=== PATIENT | female | born 1945 | race Caucasian/White ===

== ENCOUNTER 2023-10-29 11:06 | Day surgery (SDC) | payer MEDICARE, OTHER ==
[~2023-10-29] VITALS: Ht 165.1 cm; Wt 110.2 kg
[2023-10-29] VITALS (8 sets, daily range): BP systolic 114–129; BP diastolic 42–94; PULSE 64–75; RESP 12–14; TEMP 98.2; O2SAT 93–97
[2023-10-29] MEDS ORDERED: diphenhydrAMINE 25mg capsule PO PRN (11:35)
[2023-10-29] MEDS ORDERED: LORazepam 0.5 MG tablet PO PRN (11:35)
[2023-10-29] MEDS ORDERED: normal saline 1,000 ML IV SCH (11:35)
[2023-10-29] MEDS ORDERED: HYDR25TA5 PO (11:36)
[2023-10-29] MEDS ORDERED: SIMV-42 PO (11:36)
[2023-10-29] MEDS ORDERED: ERGO50CA PO (11:36)
[2023-10-29] MEDS ORDERED: LISI5TAB22 PO (11:36)
[2023-10-29 12:01] LABS: ALBUMIN 3.4 G/DL (3.4-5.0); ANION GAP 9 (8-16); BLOOD UREA NITROGEN 10 MG/DL (7-18); BUN/CREATININE RATIO 15.9 (10.0-20.0); CALCIUM 9.2 MG/DL (8.5-10.1); CHLORIDE 98 MMOL/L (99-107); CREATININE 0.63 MG/DL (0.40-0.90); GLUCOSE 119 MG/DL (70-104); SODIUM 135 MMOL/L (135-145); TOTAL CARBON DIOXIDE 28.2 MMOL/L (24-32); eCRCL 66 ML/MIN; eGFR > 90 ML/MIN
[2023-10-29 12:03] LABS: BASOPHILS # (AUTO) 0.1 X10'3 (0-0.2); BASOPHILS % (AUTO) 0.8 % (0-1); EOSINOPHILS # (AUTO) 0.2 X10'3 (0-0.9); EOSINOPHILS % (AUTO) 3.2 % (0-6); HEMATOCRIT 47.6 % (35.0-45.0); HEMOGLOBIN 16.1 g/dl (12.0-16.0); LYMPHOCYTES # (AUTO) 2.4 X10'3 (1.1-4.8); MEAN CORPUSCULAR HEMOGLOBIN 30.4 PG (27.0-31.0); MEAN CORPUSCULAR HGB CONC 33.9 g/dL (33.0-36.5); MEAN CORPUSCULAR VOLUME 89.6 FL (78-98); MEAN PLATELET VOLUME 8.2 FL (7.4-10.4); MONOCYTES # (AUTO) 0.5 X10'3 (0-0.9); MONOCYTES % (AUTO) 6.6 % (2-12); NEUTROPHILS # (AUTO) 4.4 X10'3 (1.8-7.7); NEUTROPHILS % (AUTO) 58.4 % (42-75); PLATELET COUNT 202 X10'3 (140-440); RED BLOOD COUNT 5.32 X10'6 (4.20-5.60); RED CELL DISTRIBUTION WIDTH 14.2 % (11.5-14.5); WHITE BLOOD COUNT 7.6 X10'3 (4.5-11.0)
[2023-10-29] MEDS ORDERED: verapamil 2.5 mg/ml inj IV ONE (12:15)
[2023-10-29] MEDS ORDERED: midazolam 1 mg/ML 2ml injection ONE (12:15)
[2023-10-29] MEDS ORDERED: fentaNYL/PF 50MCG/1 ML 2ML syringe ONE (12:15)
[2023-10-29] MEDS ORDERED: heparin 1,000unit/ml 10ml vial 10 ML ONE (12:15)
[2023-10-29] MEDS ORDERED: LIDOcaine 1% (10mg/ml) 2ml vial ONE (12:15)
[2023-10-29] MEDS ORDERED: iohexol 350MG/ML 100ml bottle IV ONE (12:16)
[2023-10-29] MEDS ORDERED: nitroGLYCERIN 500mcg/5mL D5W 5 ML IV ONE (12:18)
[2023-10-29 13:11] LABS: PROTHROMBIN TIME 10.5 SECONDS (9.0-12.0)
[2023-10-29 13:39] LABS: ISTAT HGB ART 13.6 g/dl (12.0-16.0); ISTAT Hct ART 40 %PCV (35-45); ISTAT O2 SATURATION ARTERIAL 90 % (95-98); ISTAT SOURCE ART
[2023-10-29] MEDS ORDERED: HYDROcodone/acetaminophen 5mg/325mg tablet PO PRN (14:20)
[2023-10-29] MEDS ORDERED: HYDROcodone/acetaminophen 10/325mg tab PO PRN (14:20)
[2023-11-02 08:28] LABS: ISTAT HGB MIX 13.6 g/dl (12.0-16.0); ISTAT Hct MIX 40 %PCV (35-45); ISTAT O2 SATURATION MIX VENOUS 66 % (60-80); ISTAT SOURCE VEN
== END 2023-10-29 16:00 | disposition home or self-care (01) ==
LOC: SSTAY O 11:06
PROVIDERS: ATTEND Student in an Organized Health Care Education/Training Program
DX: I35.0 Nonrheumatic aortic (valve) stenosis (principal); I10 Essential (primary) hypertension; E78.5 Hyperlipidemia, unspecified; E66.9 Obesity, unspecified; Z68.41 Body mass index [BMI] 40.0-44.9, adult; Z88.0 Allergy status to penicillin; Z79.899 Other long term (current) drug therapy
CPT/HCPCS: 36415; 80048; 82803; 85014; 85025; 85610; 93005; 93456; 99152; A6258; J1644; J2250; J3010; J3490; J7030; Q0163; Q9967; A6402; C1894

== ENCOUNTER 2024-01-10 10:47 | Outpatient (CLI) | payer MEDICARE, OTHER ==
[~2024-01-10 10:47] MED LIST: ERGO50CA PO; HYDR25TA5 PO; LISI5TAB22 PO; SIMV-42 PO
[2024-01-10 11:44] LABS: APTT 31 SECONDS (22-32); PROTHROMBIN TIME 10.7 SECONDS (9.0-12.0)
[2024-01-10 11:45] LABS: BASOPHILS % (AUTO) 0.6 % (0-1); EOSINOPHILS # (AUTO) 0.3 X10'3 (0-0.9); EOSINOPHILS % (AUTO) 3.5 % (0-6); HEMOGLOBIN 15.6 g/dl (12.0-16.0); LYMPHOCYTES # (AUTO) 2.3 X10'3 (1.1-4.8); LYMPHOCYTES % (AUTO) 30.5 % (21-51); MEAN CORPUSCULAR HEMOGLOBIN 30.5 PG (27.0-31.0); MEAN CORPUSCULAR VOLUME 89.8 FL (78-98); MEAN PLATELET VOLUME 8.7 FL (7.4-10.4); MONOCYTES # (AUTO) 0.5 X10'3 (0-0.9); MONOCYTES % (AUTO) 7.2 % (2-12); NEUTROPHILS # (AUTO) 4.4 X10'3 (1.8-7.7); NEUTROPHILS % (AUTO) 58.2 % (42-75); PLATELET COUNT 186 X10'3 (140-440); RED BLOOD COUNT 5.12 X10'6 (4.20-5.60); RED CELL DISTRIBUTION WIDTH 14.3 % (11.5-14.5); WHITE BLOOD COUNT 7.5 X10'3 (4.5-11.0)
[2024-01-10 11:53] LABS: ALANINE AMINOTRANSFERASE 123 U/L (12-78); ALBUMIN 3.4 G/DL (3.4-5.0); ALBUMIN/GLOBULIN RATIO 0.9 (1.1-1.5); ALKALINE PHOSPHATASE 83 IU/L (46-116); ANION GAP 6 (8-16); ASPARTATE AMINO TRANSFERASE 87 U/L (10-37); BILIRUBIN,TOTAL 0.6 MG/DL (0.1-1.0); BLOOD UREA NITROGEN 16 MG/DL (7-18); BUN/CREATININE RATIO 18.2 (10.0-20.0); CALCIUM 9.3 MG/DL (8.5-10.1); CHLORIDE 103 MMOL/L (99-107); CREATININE 0.88 MG/DL (0.40-0.90); GLUCOSE 130 MG/DL (70-104); POTASSIUM 4.1 MMOL/L (3.5-5.1); PRO BRAIN NATRIURETIC PEPTIDE 162 PG/ML (0-450); SODIUM 138 MMOL/L (135-145); TOTAL PROTEIN 7.2 G/DL (6.4-8.2); eGFR 62 ML/MIN
== END 2024-01-10 23:59 | disposition home or self-care (01) ==
LOC: RAD 10:47
PROVIDERS: ATTEND Internal Medicine Cardiovascular Disease
DX: K76.0 Fatty (change of) liver, not elsewhere classified (principal); I35.0 Nonrheumatic aortic (valve) stenosis; R06.02 Shortness of breath; I65.29 Occlusion and stenosis of unspecified carotid artery; M47.816 Spondylosis without myelopathy or radiculopathy, lumbar region; Z90.6 Acquired absence of other parts of urinary tract
CPT/HCPCS: 36415; 71046; 71275; 74174; 75572; 80053; 83880; 85025; 85610; 85730; J3490; Q9967

== ENCOUNTER 2024-01-13 15:36 | Outpatient (CLI) | payer MEDICARE, OTHER ==
[~2024-01-13] VITALS: Ht 160 cm; Wt 112.6 kg
[~2024-01-13 15:36] MED LIST changes: +IODIXANOL 320 MG/ML INFUS..BTL 100ML IV ONE
[2024-01-13 16:20] VITALS: BP 148/67; PULSE 75; RESP 18; TEMP 97.5; O2SAT 97
== END 2024-01-13 23:59 | disposition home or self-care (01) ==
LOC: TAVR 15:36
PROVIDERS: ATTEND Internal Medicine Cardiovascular Disease
DX: I35.0 Nonrheumatic aortic (valve) stenosis (principal); R06.02 Shortness of breath; I65.29 Occlusion and stenosis of unspecified carotid artery
CPT/HCPCS: J3490; Q9967

== ENCOUNTER 2024-02-10 06:01 | Inpatient (IN) | payer MEDICARE, OTHER ==
[2024-02-03 15:50] LABS: BASOPHILS # (AUTO) 0.1 X10'3 (0-0.2); BASOPHILS % (AUTO) 0.8 % (0-1); EOSINOPHILS # (AUTO) 0.2 X10'3 (0-0.9); LYMPHOCYTES # (AUTO) 2.8 X10'3 (1.1-4.8); LYMPHOCYTES % (AUTO) 35.5 % (21-51); MEAN CORPUSCULAR HEMOGLOBIN 30.1 PG (27.0-31.0); MEAN CORPUSCULAR HGB CONC 34.1 g/dL (33.0-36.5); MEAN CORPUSCULAR VOLUME 88.4 FL (78-98); MEAN PLATELET VOLUME 8.4 FL (7.4-10.4); MONOCYTES # (AUTO) 0.7 X10'3 (0-0.9); MONOCYTES % (AUTO) 8.8 % (2-12); NEUTROPHILS % (AUTO) 51.9 % (42-75); PRE OP HEMATOCRIT 45.7 % (35.0-45.0); PRE OP HEMOGLOBIN 15.6 g/dL (12.0-16.0); PRE OP PLATELET COUNT 184 X10'3 (140-440); PRE OP WHITE BLOOD COUNT 7.8 10'3 (4.8-10.8); RED BLOOD COUNT 5.17 X10'6 (4.20-5.60); RED CELL DISTRIBUTION WIDTH 14.6 % (11.5-14.5)
[2024-02-03 15:50] LABS: BILIRUBIN,URINE NEGATIVE (Neg); CLARITY,URINE SLIGHTLY CLOUDY (Clear); COLOR,URINE YELLOW (Yellow); GLUCOSE, URINE NEGATIVE (Neg); KETONES,URINE NEGATIVE (Neg); LEUKOCYTE ESTERASE ,URINE NEGATIVE (Neg); NITRITES, URINE NEGATIVE (Neg); OCCULT BLOOD,URINE NEGATIVE (Neg); PH,URINE 5.5 (4.8-8.0); PROTEIN,URINE NEGATIVE (Neg); UROBILINOGEN,URINE 0.2 E.U/dL (0.2-1.0)
[2024-02-03 15:53] LABS: UA COLLECTION TYPE NON-SPECIFIED
[2024-02-03 15:55] LABS: SQUAMOUS EPITHELIAL CELL,UR MANY /LPF (FEW)
[2024-02-03 15:56] LABS: BACTERIA,URINE 1+ /HPF (Neg); RBC,URINE NONE SEEN /HPF (0-2); WBC,URINE 0-4 /HPF (0-4)
[2024-02-03 15:58] LABS: PRE OP PROTIME 10.8 SECONDS (9.0-12.0)
[2024-02-03 16:11] LABS: ALBUMIN 3.3 G/DL (3.4-5.0); ALBUMIN/GLOBULIN RATIO 0.8 (1.1-1.5); ALKALINE PHOSPHATASE 92 IU/L (46-116); BLOOD UREA NITROGEN 14 MG/DL (7-18); BUN/CREATININE RATIO 17.1 (10.0-20.0); CALCIUM 8.8 MG/DL (8.5-10.1); CHLORIDE 100 MMOL/L (99-107); CREATININE 0.82 MG/DL (0.40-0.90); PRE OP ANION GAP 10 (8-16); PRE OP AST 70 U/L (10-37); PRE OP BILIRUB, TOTAL 0.5 MG/DL (0.0-1.0); PRE OP GLUCOSE 108 MG/DL (70-104); PRE OP POTASSIUM 4.1 MMOL/L (3.4-5.1); PRE OP SODIUM 137 MMOL/L (135-145); TOTAL CARBON DIOXIDE 27.4 MMOL/L (24-32); TOTAL PROTEIN 7.5 G/DL (6.4-8.2); eGFR 67 ML/MIN
[2024-02-03 16:24] LABS: PRO BRAIN NATRIURETIC PEPTIDE 181 PG/ML (0-450)
[2024-02-03 16:25] LABS: PRE OP ALT 106 U/L (30-65)
[~2024-02-10] VITALS: Ht 160 cm; Wt 112.5 kg
[2024-02-10] VITALS (27 sets, daily range): BP systolic 104–158; BP diastolic 48–96; PULSE 64–86; RESP 12–21; TEMP 97.6–98.6; O2SAT 86–99
[2024-02-10] MEDS: phenylephrine inj 50 MG in normal saline 250ml IV solN IV SCH (05:30)
[2024-02-10] MEDS: nitroPRUSSIDE (NIPRIDE) (200MCG/ML) 100ML Drip IV SCH (05:30)
[2024-02-10] MEDS: vancomycin/NS 1 GM in NS 250 ML IV ONE (05:30)
[~2024-02-10 06:01] MED LIST changes: -IODIXANOL 320 MG/ML INFUS..BTL 100ML IV ONE; +ondansetron/PF 4mg/2ml inj IV PRN
[2024-02-10] MEDS: ringers solution, lacted 1,000 ML IV SCH ×2 (06:50→08:00)
[2024-02-10] MEDS: aspirin 325mg tablet PO ONE (06:52)
[2024-02-10] MEDS: famotidine 20mg tablet PO ONE (06:52)
[2024-02-10] MEDS ORDERED: morphine 4 MG/ML inj SYRINge IV PRN (08:00)
[2024-02-10] MEDS ORDERED: ondansetron/PF 4mg/2ml inj IV PRN ×2 (08:00→10:20)
[2024-02-10] MEDS ORDERED: morphine 2 MG/ML inj. syringe IV PRN (08:00)
[2024-02-10] MEDS ORDERED: proCHLORperazine 10 MG/2 ml inj IV PRN ×2 (08:00→10:20)
[2024-02-10] MEDS ORDERED: meperidine/PF 25mg/ml syringe IV PRN ×3 (08:00)
[2024-02-10] MEDS ORDERED: LIDOcaine 1% (10mg/ml) 2ml vial ONE ×2 (08:20→09:02)
[2024-02-10] MEDS ORDERED: heparin 1,000 UNITS/NS 500ml 1,500 ML ONE (08:42)
[2024-02-10] MEDS ORDERED: iohexol 350MG/ML 100ml bottle IV ONE (08:42)
[2024-02-10] MEDS ORDERED: sevoflurane 250ml liquid IH ONE (08:48)
[2024-02-10] MEDS ORDERED: propofol inj 20 ML IV ONE (08:55)
[2024-02-10] MEDS ORDERED: midazolam 1 mg/ML 2ml injection ONE (08:56)
[2024-02-10] MEDS ORDERED: fentaNYL/PF 50MCG/1 ML 2ML syringe ONE (08:56)
[2024-02-10] MEDS ORDERED: heparin 1,000unit/ml 10ml vial 10 ML ONE (09:01)
[2024-02-10] MEDS: protamine sulfate 10mg/ml inj. ONE (09:04)
[2024-02-10] MEDS ORDERED: labetalol 20mg/4ml (5mg/ml) syringe IV PRN (10:20)
[2024-02-10] MEDS ORDERED: potassium Cl 40MEQ/270ML bag 250 ML IV PRN (10:20)
[2024-02-10] MEDS ORDERED: normal saline 1000ml 1,000 ML IV SCH (10:20)
[2024-02-10] MEDS ORDERED: magnesium 2GM in 50ml NS 50 ML IV PRN (10:20)
[2024-02-10] MEDS ORDERED: diphenhydrAMINE 25mg capsule PO PRN (10:20)
[2024-02-10] MEDS ORDERED: potassium Cl 20mEq/100mL bag 100 ML IV PRN (10:20)
[2024-02-10] MEDS ORDERED: magnesium 4gm in 100ml NS 100 ML IV PRN (10:20)
[2024-02-10] MEDS ORDERED: ALPRAZolam 0.25mg tablet PO PRN (10:20)
[2024-02-10] MEDS ORDERED: potassium CL 10mEq/100ml bag 100 ML IV PRN (10:20)
[2024-02-10] MEDS ORDERED: HYDROcodone/acetaminophen 5mg/325mg tablet PO PRN (10:20)
[2024-02-10] MEDS ORDERED: pantoprazole 40mg Tablet.DR PO PRN (10:20)
[2024-02-10] MEDS ORDERED: potassium Cl 20 mEq SR tablet PO PRN (10:20)
[2024-02-10] MEDS ORDERED: potassium Cl 40MEQ/1/2NS 520ml 520 ML IV PRN (10:20)
[2024-02-10] MEDS ORDERED: hydrALAZINE 20mg/ml inj. IV PRN (10:20)
[2024-02-10] MEDS ORDERED: docusate sod 100mg capsule PO PRN (10:20)
[2024-02-10] MEDS: sod chloride 0.9% 10ml flush syringe IV SCH (20:00)
[2024-02-10] MEDS: atorvastatin 10mg tablet PO SCH (20:16)
[2024-02-10] MEDS: vancomycin/NS 1 GM ADD-VANTAGE 250 ML IV SCH (20:17)
[2024-02-10] MEDS: acetaminophen 325mg tablet PO PRN (21:25)
[2024-02-11 02:00] VITALS: BP 123/74; PULSE 80; RESP 20; TEMP 97.6; O2SAT 97
[2024-02-11 06:00] VITALS: BP 132/51; PULSE 93; RESP 16; TEMP 98.5; O2SAT 96
[2024-02-11] MEDS: HYDROchlorothiazide 25mg tablet PO SCH (07:38)
[2024-02-11] MEDS: aspirin 81mg tab.chew PO SCH (07:38)
[2024-02-11] MEDS: cholecalciferol (vitamin D3) 1,000 unit (25mcg) tablet PO SCH (07:40)
[2024-02-11] MEDS: lisinopril 5mg tablet PO SCH (07:40)
[2024-02-11 08:12] LABS: BASOPHILS % (AUTO) 0.4 % (0-1); EOSINOPHILS # (AUTO) 0.2 X10'3 (0-0.9); EOSINOPHILS % (AUTO) 3.1 % (0-6); HEMATOCRIT 40.3 % (35.0-45.0); HEMOGLOBIN 13.5 g/dl (12.0-16.0); LYMPHOCYTES # (AUTO) 1.4 X10'3 (1.1-4.8); LYMPHOCYTES % (AUTO) 23.5 % (21-51); MEAN CORPUSCULAR HEMOGLOBIN 30.1 PG (27.0-31.0); MEAN CORPUSCULAR HGB CONC 33.4 g/dL (33.0-36.5); MEAN CORPUSCULAR VOLUME 90.2 FL (78-98); MEAN PLATELET VOLUME 8.4 FL (7.4-10.4); MONOCYTES # (AUTO) 0.6 X10'3 (0-0.9); MONOCYTES % (AUTO) 10.7 % (2-12); NEUTROPHILS # (AUTO) 3.7 X10'3 (1.8-7.7); NEUTROPHILS % (AUTO) 62.3 % (42-75); PLATELET COUNT 115 X10'3 (140-440); RED BLOOD COUNT 4.47 X10'6 (4.20-5.60); RED CELL DISTRIBUTION WIDTH 14.3 % (11.5-14.5)
[2024-02-11 08:42] LABS: ALANINE AMINOTRANSFERASE 81 U/L (12-78); ALBUMIN 2.6 G/DL (3.4-5.0); ALBUMIN/GLOBULIN RATIO 0.7 (1.1-1.5); ALKALINE PHOSPHATASE 64 IU/L (46-116); ANION GAP 4 (8-16); ASPARTATE AMINO TRANSFERASE 54 U/L (10-37); BILIRUBIN,TOTAL 0.6 MG/DL (0.1-1.0); BLOOD UREA NITROGEN 11 MG/DL (7-18); BUN/CREATININE RATIO 15.5 (10.0-20.0); CHLORIDE 101 MMOL/L (99-107); CREATININE 0.71 MG/DL (0.40-0.90); GLUCOSE 147 MG/DL (70-104); MAGNESIUM 1.8 MG/DL (1.5-2.4); POTASSIUM 3.8 MMOL/L (3.5-5.1); PRO BRAIN NATRIURETIC PEPTIDE 278 PG/ML (0-450); SODIUM 135 MMOL/L (135-145); TOTAL CARBON DIOXIDE 30.4 MMOL/L (24-32); TOTAL PROTEIN 6.1 G/DL (6.4-8.2); eCRCL 53 ML/MIN; eGFR 79 ML/MIN
[2024-02-11 11:00] VITALS: BP 124/60; PULSE 62; RESP 17; TEMP 97.8; O2SAT 97
[2024-02-11] MEDS ORDERED: ASPI81TA53 PO (15:16)
== END 2024-02-11 17:11 | disposition home or self-care (01) | DRG 267 ==
LOC: PAS IN 06:01 → EDSTATUS 08:30 → PCU 3S 19:14
PROVIDERS: ADMIT Internal Medicine Cardiovascular Disease; ATTEND Internal Medicine Cardiovascular Disease
PROC: 027F3ZZ Dilation of Aortic Valve, Percutaneous Approach (ICD-10-PCS; 2024-02-10)
PROC: B3101ZZ Fluoroscopy of Thoracic Aorta using Low Osmolar Contrast (ICD-10-PCS; 2024-02-10)
PROC: B41G1ZZ Fluoroscopy of Left Lower Extremity Arteries using Low Osmolar Contrast (ICD-10-PCS; 2024-02-10)
PROC: B41F1ZZ Fluoroscopy of Right Lower Extremity Arteries using Low Osmolar Contrast (ICD-10-PCS; 2024-02-10)
PROC: 03HY32Z Insertion of Monitoring Device into Upper Artery, Percutaneous Approach (ICD-10-PCS; 2024-02-10)
PROC: 02RF38N Replacement of Aortic Valve with Zooplastic Tissue, using Rapid Deployment Technique, Percutaneous Approach (ICD-10-PCS; principal; 2024-02-10 08:48)
DX: I35.0 Nonrheumatic aortic (valve) stenosis (principal); Z00.6 Encounter for examination for normal comparison and control in clinical research program; Z68.41 Body mass index [BMI] 40.0-44.9, adult; E66.01 Morbid (severe) obesity due to excess calories; E78.5 Hyperlipidemia, unspecified; I11.9 Hypertensive heart disease without heart failure; Z79.899 Other long term (current) drug therapy
CPT/HCPCS: 33361; 36415; 71045; 71046; 76937; 80053; 81001; 82948; 83735; 83880; 85025; 85347; 85610; 85730; 86885; 86900; 86901; 86920; 87081; 93005; 93308; A4615; A4618; A6258; A6449; C1725; C1756; C1760; C1769; C1894; G0378; J1644; J2250; J2370; J2704; J2720; J3010; J3370; J3490; J7040; J7050; J7120; Q9967